=== PATIENT | male | born 2000 ===

== ENCOUNTER 2024-12-02 07:47 | Outpatient (AMB) | payer OTHER, SELFPAY ==
--- OUTSIDE RECORDS SUMMARY | 2024-12-02 07:50 | XMS_ITS | Clinical Summary ---
Author Organization [facility] Address [address] [place] [address] Phone Care Team Providers Care Assistant Sales Director Name Role Phone Loki Metz MD Primary Care Provider [phone] Allergies No known active allergies Medications No known medications Encounters Date Type Department Care Team Description 10/21/[address] [phone] Loki Metz MD from Last 3 Months Medical History Medical History Date Comments Asthma, moderate persistent, poorly-controlled DX:Asthma, moderate persiste nt, poorly-controlled; COMMENT: multiple Ed visits, no admissions, worse in [place] Seasonal allergies DX:Seasonal a llergies Obesity 09/08 DX:Obesity; COMM ENT: normal labs Eczema 09/19/2008 DX:Eczema Epistaxis 10/08/2010 DX:Epistaxis Asthma, moderate persistent, well-controlled 09/19/2008 DX:Asthma, moderate persiste nt, well-controlled Low vision, both eyes 12/15/2008 DX:Low vis ion, both eyes; COMMENT: Seen by Dr. Vela, glasses for school Childhood obesity 09/19/2008 DX:Childhood o besity; COMMENT: Referred to [facility] weight management/appt - Janine Abn thyroid function test (elevated TPO antibodies) TSH monitor q 6m F/u monthly/9-12 nl TSH,FreeT4 Fractured great toe 05/08/2015 DX:Fractured great toe; COMMENT: 3-16 mildly displaced fx at base of 1st distal phalanx Myopia with astigmatism 10/26/2015 DX:Myopi a with astigmatism Mild intermittent asthma wit hout complication 03/02/2019 DX:Mild intermittent asthma without complication Closed displaced fracture of nasal bone 08/02/2019 DX:Closed displaced fracture of nasal bone; COMMENT: 08/01/19: trauma, seen at [facility] ER Depression 03/09/2020 DX:Depression Family History Medical History Relation Name Comments Diabetes Father Hyperlipidemia Father Other cancer Father salivary gland 40s Stroke Father 40s Thyroid disease Father Other: Other Father's side pat siblings t ype 2 diabetes Glaucoma Maternal Grandfather Other: Other Maternal Grandfather d motorcycle accident Hypertension Maternal Grandmother Other: heart disease Other both si edmund Diabetes Paternal Grandfather heart d isease Hypertension Paternal Grandmother Blindness Neg Hx Cataracts Neg Hx Macular degeneration Neg Hx Strabismus Neg Hx Relation Name Status Comments Father Alive cjose sr .cance r neck saliva gland ,heart attack at 45y/o,depression Father's side Maternal Grandfather Maternal Grandmother Mother Alive Other Paternal Grandfather Paternal Grandmother Social History Tobacco Use Types Packs/Day Years Used Date Smoking Tobacco: Never Smokeless Tobacco: Never Alcohol Use Standard Drinks/Week Comments Not Currently 0 (1 standard drink = 0.6 oz pur e alcohol) Sex and Gender Information Value Date Recorded Sex Assigned at Male 01/25/2024 9:40 AM EST Legal Sex Male 5:42 PM EST Gender Identity Male 01/25/2024 9:40 AM EST Sexual Orientation Straight 01/25/2024 9: 40 AM EST Obstetrics History Last Filed Vital Signs Vital Sign Reading Time Taken Comments Blood Pressure 115/61 01/25/2024 9:51 AM EST Pulse 65 01/25/2024 9:51 AM EST Temperature 36.8 C (98.2 F) 01/25/2024 9:51 AM EST Respiratory Rate 17 01/25/2024 9:51 AM EST Oxygen Saturation 97% 01/25/2024 9:51 AM EST Inhaled Oxygen Concentration - - Weight 90.7 kg (200 lb) 01/25/2024 8:53 AM EST Height 175.3 cm (5' 9 ) 01/25/2024 8:53 AM EST Body Mass Index 29.53 01/25/2024 8:53 AM EST Plan of Treatment Health Maintenance Due Date Last Done Comments Pneumococcal Vaccine: Pediatrics (0 to 5 Years) and At-Risk Patients (6 to 49 Years) (1 of 1 - PPSV23, PCV20, or PCV21) 2008 01/18/2003, 2002, 2002 Meningococcal B Vaccine (1 of 2 - Standard) 2018 Cholesterol Screening (Lipid Panel) 02/09/2022 HIV Screening 02/09/2022 Hepatitis C Screening 02/09/2022 Social Influencers of Health Screening 02/09/2022 DTaP,Tdap,and Td Vaccines (7 - Td or Tdap) 12/09/2023 12/08/2013, 10/28/2006, 11/22/2003, Additional history exists Depression Screening 03/03/2024 COVID-19 Vaccine ( - season) 2024 06/20/2020, 05/29/2020 Influenza Vaccine (#1) 2024 , 03/02/2019, 12/23/2017, Additional history exists RSV Immunization Adult Patients (1 - 1-dose 75+ series) 2077 Hepatitis B Vaccines Completed 05/05/2003, 2002, 2002 HIB Vaccines Completed 11/22/2003, 11/02, 01/18/2003, Additional history exists IPV Vaccines Completed 10/28/2006, 11/02, 01/18/2003, Additional history exists MMR Vaccines Completed 10/28/2006, 11/22/2003 Varicella Vaccines Completed 10/28/2006, 08/05/2003 HPV Vaccines Completed 10/12/2015, 12/01, 12/08/2013 Meningococcal ACWY Vaccine Completed 03/02/2019, Hepatitis A Vaccines Aged Out No long er eligible based on patient's age to complete this topic RSV Immunization Patients Under 20 months Aged Out No longer eligible based on patient's age to complete this topic Insurance [facility] MEDICAID - [place] Care Teams Assistant Sales Director Relationship Specialty Start Date End Date Loki Metz MD [address] [place] [address] PCP - General Pediatrics 10/21/24
--- OUTSIDE RECORDS SUMMARY | 2024-12-02 07:50 | XMS_ITS | Clinical Summary ---
Author Organization [facility] Address [address] [place] [address] Care Team Providers Care Precinct Commanding Officer Name Role Phone Unavailable Primary Care Provider Unavailabl e Source Comments PLEASE NOTE, if this patient is a minor, it may be UNLAWFUL to discuss sensitive information that is contained in these records (such as FAMILY PLANNING, MENTAL HEALTH or SUBSTANCE ABUSE) with the minor patient's parent or other person without the patient's specific authorization.[facility] Allergies No known active allergies Medications No known medications Active Problems No known active problems Social History Tobacco Use Types Packs/Day Years Used Date Smoking Tobacco: Never Smokeless Tobacco: Never Tobacco Cessation:Counseling Given: Not Answered Social Connections Answer Date Recorded Connectedness 0 11/20/2023 Financial Resource Strain Answer Date R ecorded Financial Resource Strain 0 2021 Stress Answer Date Recorded Stress 0 08/01/2021 Physical Activity Answer Date Recorded Physical Activity 0 08/01/2021 Food Insecurity Answer Date Recorded Food 0 11/27/2023 Transportation Needs Answer Date Record ed Transportation 0 08/01/2021 Housing Stability Answer Date Recorded Housing 0 08/01/2021 Safety and Environment Answer Date Arnulfo rded Safety 0 08/01/2021 Utilities Answer Date Recorded Utilities 0 08/01/2021 Employment Answer Date Recorded Stress 0 11/20/2023 Sex and Gender Information Value Date Recorded Sex Assigned at Not on file Legal Sex Male 8:58 AM PST Gender Identity Not on file Sexual Orientation Not on file Last Filed Vital Signs Vital Sign Reading Time Taken Comments Blood Pressure 109/62 09/02/2022 12:57 PM EDT Pulse 50 09/02/2022 12:57 PM EDT Temperature - - Respiratory Rate - - Oxygen Saturation - - Inhaled Oxygen Concentration - - Weight - - Height - - Body Mass Index - - Plan of Treatment Health Maintenance Due Date Last Done Comments Anxiety Screening 2002 Hepatitis C Screening 2002 Imm-Varicella (1 of 2 - 13+ 2-dose series) 08/01/2015 HIV Screening 2017 Imm-HPV (1 - Male 3-dose series) 2017 Imm-DTaP/Tdap/Td (1 - Tdap) 2021 Imm-Hepatitis B (1 of 3 - 19 + 3-dose series) 2021 Dental Perio Charting 08/08/2023 08/05/2022 , 02/04/2022, 08/01/2021 Alcohol and Drug Screen 03/03/2024 Depression Annual Screen 03/03/2024 [id number] ( season) 2024 Imm-Influenza (#1) 2024 Tobacco Screening 05/03/2025 05/03/2024 Dental BW 05/05/2025 05/03/2024, 06/0 07/2022, 02/04/2022, Additional history exists Dental Examination 05/05/2025 05/03/2024, 0 08/05/2022, 02/04/2022, Additional history exists Dental Prophy 05/05/2025 05/03/2024, 06/0 07/2022, 02/04/2022, Additional history exists Hypertension Screening (#1) 09/01/2025 Dental FMX/Pano 05/05/2029 05/03/2024 Procedures Procedure Name Priority Date/Time Associated Diagnosis Comments PANORAMIC RADIOGRAPHIC IMAGE Routine 05/03/2024 9:00 AM EST Encounter for dental examination and cleaning with abnormal findings BITEWINGS - FOUR RADIOGRAPHIC IMAGES Routine 05/03/2024 9:00 AM EST Encounter for dental examination and cleaning with abnormal findings PROPHYLAXIS - ADULT Routine 05/03/2024 9 :00 AM EST Encounter for dental examination and cleaning with abnormal findings PERIODIC ORAL EVALUATION ESTABLISHED PATIENT Routine 05/03/2024 9:00 AM EST Encounter for dental examination and cleaning with abnormal findings COMP PERIODONTAL EVALUATION - NEW/EST PATIENT Routine 08/05/2022 9:40 AM EDT Caries of enamel (incipient) Caries from Last 3 Months or Most Recently Relevant to Health Maintenance Insurance [facility]
--- OUTSIDE RECORDS SUMMARY | 2024-12-02 07:50 | XMS_ITS | Encounter Summary ---
Author Organization [facility] Address [address] [place] [address] Care Team Providers Care Bleach Boiler Puller Name Role Phone Unavailable Primary Care Provider Unavailabl e Reason for Visit * Reason Comments Dental Hygiene/ Preventive RECALL Encounter Details Date Type Department Care Team (Late st Contact Info) Description 08/01/2021 Dental Interim Note [facility] [address] [place] [phone] Alysia Paniagua [address] [place], [place] [phone] Social History Tobacco Use Types Packs/Day Years Used Date Smoking Tobacco: Never Assessed Social Connections Answer Date Recorded Social Connections and Isolation 0 08/01/2021 Financial Resource Strain Answer Date R ecorded Financial Resource Strain 0 2021 Stress Answer Date Recorded Stress 0 08/01/2021 Physical Activity Answer Date Recorded Physical Activity 0 08/01/2021 Food Insecurity Answer Date Recorded Food 0 08/01/2021 Transportation Needs Answer Date Record ed Transportation 0 08/01/2021 Housing Stability Answer Date Recorded Housing 0 08/01/2021 Safety and Environment Answer Date Arnulfo rded Safety 0 08/01/2021 Utilities Answer Date Recorded Utilities 0 08/01/2021 Employment Answer Date Recorded Employment 0 08/01/2021 Sex and Gender Information Value Date Recorded Sex Assigned at Not on file Legal Sex Male 8:58 AM PST Gender Identity Not on file Sexual Orientation Not on file COVID-19 Exposure Response Date Recorded In the last 10 days, have yo u been in contact with someone who was confirmed or suspected to have Coronavirus/COVID-19? No / Unsure 08/01/2021 3:29 PM EDT documented as of this encounter Plan of Treatment Not on file documented as of this encounter Procedures Procedure Name Priority Date/Time Associated Diagnosis Comments 19 B COMPOSITE - WISDOM (NON BILLABLE) Routine 08/01/2021 12:00 AM EDT 30 B COMPOSITE - WISDOM (NON BILLABLE) Routine 08/01/2021 12:00 AM EDT 2 O SEALANT - PER TOOTH Routine 08/01/2021 12:00 AM EDT 3 O SEALANT - PER TOOTH Routine 08/01/2021 12:00 AM EDT 30 O SEALANT - PER TOOTH Routine 08/01/2021 12:00 AM EDT 31 O SEALANT - PER TOOTH Routine 08/01/2021 12:00 AM EDT 18 O SEALANT - PER TOOTH Routine 08/01/2021 12:00 AM EDT 19 O SEALANT - PER TOOTH Routine 08/01/2021 12:00 AM EDT 14 O SEALANT - PER TOOTH Routine 08/01/2021 12:00 AM EDT 15 O SEALANT - PER TOOTH Routine 08/01/2021 12:00 AM EDT documented in this encounter Visit Diagnoses Not on filedocumented in this encounter
--- OUTSIDE RECORDS SUMMARY | 2024-12-02 07:50 | XMS_ITS ---
Author Name [facility] Organization Unknown History of Medication Use Medication Directions Dispensed Refills Start Date End Date Stat us No known medications No known medications active Problems Problem Status Onset Date Problem Type Date of Resoluti on Source Sore throat active EncounterDiagnosisAct CCT Encounters Encounter Type Encounter Reason Primary Diagnosis Location Date Ambulatory Acute pharyngitis, unspecified Acute pharyngitis, unspecified [facility] 10/18/2023 Care Team Organization Name Specialty Phone Email Start Date End [facility] 10/18/2023 05/19/2024 [facility] 10/18/2023 [facility] Loki Metz Primary Care 01/08/20222023
--- OUTSIDE RECORDS SUMMARY | 2024-12-02 07:50 | XMS_ITS | Clinical Summary ---
Author Organization [facility] Address [address] [id number] Care Team Providers Care Metal Cnc Operator Name Role Phone Pcp, No Primary Care Provider Unavailabl e Allergies No known active allergies Medications No known medications Social History Tobacco Use Types Packs/Day Years Used Date Smoking Tobacco: Never Assessed Sex and Gender Information Value Date Recorded Sex Assigned at Not on file Legal Sex Male 9:15 AM EDT Gender Identity Not on file Sexual Orientation Not on file Last Filed Vital Signs Vital Sign Reading Time Taken Comments Blood Pressure 126/78 10/18/2023 9:25 AM EDT Pulse 90 10/18/2023 9:25 AM EDT Temperature 37.7 C (99.8 F) 10/18/2023 9:25 AM EDT Respiratory Rate 16 10/18/2023 9:25 AM EDT Oxygen Saturation 96% 10/18/2023 9:25 AM EDT Inhaled Oxygen Concentration - - Weight 86.2 kg (190 lb) 10/18/2023 9:25 AM EDT Height 175.3 cm (5' 9 ) 10/18/2023 9:25 AM EDT Body Mass Index 28.06 10/18/2023 9:25 AM EDT Plan of Treatment Health Maintenance Due Date Last Done Comments Hepatitis C Virus Screening 2002 HIV Screening 08/01/2015 HPV Vaccines (1 - Male 3-dos e series) 2017 DTaP/Tdap/Td Vaccines (1 - Tdap) 2021 Hepatitis B Vaccines (1 of 3 - 19+ 3-dose series) 2021 Influenza Vaccine 10/01/2024 COVID-19 Vaccine (1 - 2023-2 5 season) 2024 Pneumococcal Vaccine: Pediat micheal (0-5 Years) and At-Risk Patients (6 to 49 Years) Aged Out No longer eligible b ased on patient's age to complete this topic Insurance [facility] Care Teams Metal Cnc Operator Relationship Specialty Start Date End Date Pcp, Ann PCP - General General Medicine 10/18/23
[2024-12-02 07:53] VITALS: BP 112/62; PULSE 54; O2SAT 99; BMI 34.0
--- NOTE | 2024-12-02 07:53 | MHC.PC.OV ---
Vital Signs 12/02/24 07:53 Height 5 ft 8.5 in Weight 227 lb BMI 34.0 BP 112/62 Blood Pressure Location Lt brachial Position Sitting Pulse 54 Pulse Source Pulse Oximeter Pulse Oximetry (%) 99 Oxygen Delivery Method Room Air Intake Visit Reasons: Establish Care Allergies No Known Allergies Allergy (Verified 12/02/24 08:09) Medication List - Last Reconciled 12/02/24 by Mary Boykin PA-C No Known Home Meds Tobacco use date assessed: 12/02/24 Dental Screening Dental Screen Date: 12/02/24 Did you have a dental visit in the last 12 months?: Yes Did you have a dental problem in the last 6 months where you did not have access to dental care?: No Was dental information given to patient?: Patient has dentist HPI Establish Care HPI Details 24 year old male coming to the office for the first time. Presenting for a wellness visit and evaluation of potential lactose intolerance and dermatitis. Reports allergic rhinitis exacerbated by cat exposure, causing throat irritation and congestion. History of childhood asthma, currently not requiring a rescue inhaler. Experiences gastrointestinal discomfort after dairy consumption, indicating possible lactose intolerance. Recurrent dermatitis, possibly eczema, with dry, red patches post-haircut, potentially due to alcohol-based products. Recently ceased vaping, experiencing headaches during withdrawal. [facility] given today [facility] Medical History Asthma Surgical History S/P nasal surgery Family History Mother No problems noted. Father Salivary gland tumor Stroke Diabetes Brother No problems noted. Brother No problems noted. Sister No problems noted. Paternal Grandfather Stroke Social History Housing: Other Patient Tobacco Use Status: Current everyday Tobacco user e-Cigarette/Vaping Use: Currently Using Second Hand Smoke Exposure: Yes service: No Current occupational status: unemployed Current occupational exposures/hazards: No Cognitive needs: No Hearing needs: No Vision needs: Yes Questionnaire PHQ-9 Over the last 2 weeks, how often have you been bothered by any of the following problems? 1. Little interest or pleasure in doing things: not at all 2. Feeling down, depressed, or hopeless: not at all 3. Trouble falling or staying asleep, or sleeping too much: not at all 4. Feeling tired or having little energy: not at all 5. Poor appetite or overeating: not at all 6. Feeling bad about yourself - or that you are a failure or have let yourself or your family down: not at all 7. Trouble concentrating on things, such as reading the newspaper or watching television: not at all 8. Moving or speaking so slowly that other people could have noticed. Or the opposite - being so fidgety or restless that you have been moving around a lot more than usual: not at all 9. Thoughts that you would be better off or of hurting yourself in some way: not at all Total score: 0 Depression Screening Interpretation: Negative Depression Screening Done: Yes Source: Developed by Drs. Miguel Angel Yost, Eusebia Koehler, Fady Cantrell and colleagues, with an educational amish from [employer]. Thrive Questionnaire Date Thrive assessed: 11/29/24 I am a: Patient What is your living situation today?: I have a steady place to live Within the past 12 months, did the food you bought not last and you didn't have the money to get more?: Never true Within the past 12 months, did you worry whether your food would run out before you got money to buy more?: Never true Do you have trouble paying for medicines?: No Do you have trouble getting transportation to medical appointments?: No Do you have trouble paying your heating and electricity bill?: No Do you have trouble taking care of your child, family member or friend?: No Do you have trouble with day-to-day activities such as bathing, preparing meals, shopping, managing finances, etc.?: No Are you currently unemployed and looking for a job?: Yes Are you interested in more education?: Yes Please select the resources that you would like help with: Education Currently or been in a relationship where the following occur: No concerns reported THRIVE Score: 0 AUDIT C Alcohol Use Questionnaire (AUDIT-C) 1. How often do you have a drink containing alcohol?: Monthly or less 2. How many drinks containing alcohol do you have on a typical day when you are drinking?: 1 or 2 3. How often do you have six or more drinks on one occasion?: Never Total Score: 1 KATTY-7 AMB Questionnaire KATTY-7 Date KATTY - 7 assessed: 12/02/24 Feeling nervous, anxious, or on edge: 0 = Not at all Not being able to stop or control worryin = Not at all Worrying too much about different things: 0 = Not at all Trouble relaxin = Not at all Being so restless that it is hard to sit still: 0 = Not at all Becoming easily annoyed or irritable: 0 = Not at all Feeling afraid as if something awful might happen: 0 = Not at all Total KATTY-7 score (0-4 normal; 5-9 mild; 10-14 moderate; 15-21 severe): 0 Source: Developed by Drs. Miguel Angel Yost, Eusebia Koehler, Fady Cantrell and colleagues, with an educational amish from [employer]. KATTY-7 Assessment Billing KATTY-7 Assessment Tool: KATTY-7 Assessment 27900 Review of Systems Const Denies body aches, Denies chills, Denies fever(s), Reports headache(s) (at night ) and Denies poor appetite Eyes Reports no additional complaints and Reports requires corrective lenses ENT Denies dysphagia, Denies dizziness, Reports headache(s) (at night ) and Denies odynophagia Card Denies chest pain, Denies syncope, Denies edema, Denies irregular heart rhythm, Denies lightheadedness and Denies dyspnea Resp Denies cough and Denies dyspnea GI Denies abdominal pain, Denies constipation, Denies dysphagia, Denies diarrhea, Denies nausea, Denies odynophagia and Denies vomiting Reports no additional complaints Musc Reports no additional complaints and Denies abnormal gait Skin/Breast Reports system reviewed and no additional complaints, except as documented Neuro Denies abnormal gait, Denies dizziness, Denies syncope and Reports headache(s) (at night ) Psych Reports no additional complaints Physical exam (Primary Care) Vital Signs: Last Vital Signs Pulse 54 12/02/24 07:53 BP 112/62 12/02/24 07:53 Pulse Ox 99 12/02/24 07:53 Oxygen Delivery Method Room Air 12/02/24 07:53 BMI result Body Mass Index 34.0 Tobacco/Smoking Status: Tobacco use Status Tobacco use date assessed 12/02/24 12/02/24 08:00 Patient Tobacco Use Status Current everyday Tobacco 12/02/24 08:00 e-Cigarette/Vaping Use Currently Using 12/02/24 08:00 PHQ-9: PHQ-9 Score PHQ-9: Total score 0 12/02/24 08:08 Depression Screening Interpretation: Negative Thrive Assessment: Date of Thrive Assessment Date Thrive assessed 11/29/24 12/02/24 08:00 Currently or been in a relationship where the following occur: No concerns reported Const General: cooperative, healthy appearing, comfortable and no acute distress Orientation/consciousness: patient oriented x3 HENMT Head: Yes normocephalic Ears: hearing grossly normal bilaterally General nose exam: Normal external nose present Face and sinus: Yes normal facial exam and Yes sinuses nontender Mouth: Normal oral and palatal mucosa present and tongue normal Throat: Yes posterior oropharynx normal Eyes General: appearance normal, both eyes and all related structures Conjunctivae: conjunctivae normal Pupils: Equal, round and reactive pupils present EOM: EOMs intact bilaterally and No Nystagmus present Neck Neck: Yes full ROM and Yes no lymphadenopathy Chest Chest palpation & inspection: normal inspection of the chest Resp Effort & Inspection: normal respiratory effort Auscultation: clear to auscultation bilaterally, no crackles, no rales, no rhonchi and no wheezes Cardio Rate: regular rate Rhythm: regular rhythm Peripheral pulses: radial pulses present and dorsalis pedis present GI Inspection: Yes normal to inspection and No Abdominal wall edema Palpation (GI): Soft to palpation, not firm and nontender Auscultation: normal bowel sounds Rectal Exam - Male: Yes deferred General: Yes no CVA tenderness Back/Spine/Pelvis Back: no CVA tenderness Skin Other: no rash on the face at this time General skin exam: no rashes or lesions noted Neuro General: patient oriented x3 Cranial nerves: Yes Equal, round and reactive pupils present, Yes Midline tongue present, Yes Ability to bilaterally elevate shoulders present and No Nystagmus present Gait exam (Neuro): Normal gait present Extrem General: Yes normal to inspection, Yes full ROM and No edema Psych Speech and movement: Normal speech and movement present Affect: normal affect Attitude: cooperative Insight: Good insight present (Psych) Judgement: Good judgement present (Psych) Immunizations Boostrix Tdap 2.5 Lf unit-8 mcg-5 Lf/0.5 mL intramuscular syringe Performing Provider: Mary Boykin PA-C [facility] Administered by: Shazia Cortez CMA on 12/02/24 08:41 Dose Route Admin Location Dispensed Lot Number Expiration Date [facility] Notched Blade Loader 0.5 mL IM Left Deltoid 0.5 mL [id number] 01/20/27 [id number] [employer] Total Dispensed Waste 0.5 mL 0 % VIS Given Date VIS Provided VIS Publication Date 12/02/24 Single Vaccine 20 Eligibility Eligibility Date Funding Source Not [facility] Eligible 12/02/24 Private Coding Level of Care Code New Pt Prev Care 18-39yr(49460 Diagnoses Tobacco use Z72.0 Stomach discomfort R10.9 Annual physical exam Z00.00 Dermatitis L30.9 Family history of stroke Z82.3 Additional Codes KATTY-7 Assessment Billing - KATTY-7 Assessment Tool: KATTY-7 Assessment 24025 ([id number]) Assessment & Plan Assessment & Plan (1) Tobacco use: Code(s): Z72.0 - Tobacco use Category: Social Hx Plan: Recently quit vaping and strongly advised to avoid the use of tobacco products. (2) Stomach discomfort: Comment: secondary to dairy Code(s): R10.9 - Unspecified abdominal pain Category: Medical Plan: The patient is advised to avoid dairy products or use lactase supplements to manage symptoms. Formal allergy testing was discussed but declined today. Does not appear to be related to GERD. Reviewed red flag symptoms and when to present for re-evaluation (3) Annual physical exam: Code(s): Z00.00 - Encounter for general adult medical examination without abnormal findings Category: Medical Plan: Patient is up to date on all recommended routine screenings and vaccinations for his age. He was given TDap in the office today. Ordered for updated blood work and plan to follow up yearly or sooner as needed. (4) Dermatitis: Code(s): L30.9 - Dermatitis, unspecified Category: Medical Plan: Skin irritation only after the [employer] that resolves with facial creams. Does not sound typical of staph infection but I did review these symptoms with him. The patient is advised to avoid alcohol-based products and use moisturizing lotions to manage skin irritation. Further evaluation may be considered if symptoms persist. (5) Family history of stroke: Code(s): Z82.3 - Family history of stroke Category: Medical Plan: Given the family history of stroke both with patient's father and paternal grandfather plan to obtain cholesterol labs as well as screening for diabetes. Plan This note was constructed using voice recognition software. While every effort has been made to ensure accuracy and craft demonstrator, still areas may have been included sometimes these areas may affect the content or meeting of the given symptoms. Total time spent caring for the patient today was 30 minutes. This includes time spent before the visit reviewing the chart, time spent during the visit, and time spent after the visit and documentation. Patient was informed and verbally consented to the use of an ambient scribe for clinic note documentation during this visit. Orders: Orders Complete Blood Count Auto Diff Today Z13.0 - Encounter for screening for diseases of the blood and blood-forming organs and certain disorders involving the immune mechanism TSH reflex Free T4 Today Z13.29 - Encounter for screening for other suspected endocrine disorder Hemoglobin A1c Today Z13.1 - Encounter for screening for diabetes mellitus Free T4 (Free Thyroxine) Today Z13.29 - Encounter for screening for other suspected endocrine disorder Comprehensive Met. Panel Today R10.9 - Unspecified abdominal pain, Z13.1 - Encounter for screening for diabetes mellitus Vitamin B12 and Folate Today Z13.21 - Encounter for screening for nutritional disorder Vitamin D 25-OH Total Today Z13.21 - Encounter for screening for nutritional disorder Lipid Panel Today Z13.220 - Encounter for screening for lipoid disorders TDaP Immunization Today Z23 - Encounter for immunization
== END 2024-12-02 08:46 | disposition home or self-care (01) ==
LOC: HO.HMCH 07:47
DX: Z72.0 Tobacco use (principal); R10.9 Unspecified abdominal pain; Z00.00 Encounter for general adult medical examination without abnormal findings; L30.9 Dermatitis, unspecified; Z82.3 Family history of stroke; Z23 Encounter for immunization

== ENCOUNTER → 2024-12-02 07:47 | Outpatient (BNVA) | payer OTHER, SELFPAY | DX: Z00.00 Encounter for general adult medical examination without abnormal findings (principal); R10.9 Unspecified abdominal pain; L30.9 Dermatitis, unspecified; Z82.3 Family history of stroke; Z23 Encounter for immunization | CPT/HCPCS: 90471; 90715; 96127; 99385 ==

== ENCOUNTER 2024-12-08 10:35 | Outpatient (REF) | payer OTHER, SELFPAY ==
[2024-12-08 10:56] LABS: MANUAL DIFF FLAG NO
[2024-12-08 11:47] LABS: Hematocrit 44.0 % (42.0-52.0); Hemoglobin 14.7 g/dl (14.0-18.0); Imm Gran Abs Auto 0.02 X10*3/uL (0.00-0.03); Imm Gran Pct Auto 0.3 % (0.0-0.4); Lymphocytes Absolute Auto 3.2 X10*3/uL (1.2-4.9); Mean Corpuscular HGB Conc 33.4 g/dl (31.0-36.0); Mean Corpuscular Hemoglobin 29.8 pg (27.0-33.0); Mean Corpuscular Volume 89.2 fL (80.0-98.0); NRBC Abs Auto 0.000 X10*3/uL (0.0-0.012); NRBC Pct Auto 0.0 /100WBC (0.0-0.2); Platelet Count 234 X10*3/uL (160-400); Red Blood Count 4.93 X10*6/uL (4.60-5.80); White Blood Count 7.1 X10*3/uL (4.8-10.8)
[2024-12-08 12:33] LABS: Alanine Aminotransferase 52 U/L (0-40); Albumin Level 4.8 g/dL (3.5-5.0); Alkaline Phosphatase 74 U/L (39-117); Anion Gap 9 (12-20); Aspartate Amino Transferase 46 U/L (5-37); Blood Urea Nitrogen 20 mg/dL (9-16); Calcium 9.3 mg/dL (8.4-10.2); Carbon Dioxide 30 mmol/L (22-29); Chloride 106 mmol/L (96-108); Cholesterol 161 mg/dL (<200); Estimated Glomerular Filt Rate > 60; HDL Cholesterol 45 mg/dL (>40); Potassium 3.8 mmol/L (3.3-5.1); Sodium 141 mmol/L (135-145); Total Protein 7.5 g/dL (6.5-8.0); Triglycerides 60 mg/dL (<150)
[2024-12-08 12:36] LABS: Free T4 (Free Thyroxine) 1.09 ng/dL (0.71-1.85)
[2024-12-08 12:52] LABS: Folate 7.8 ng/mL (> or = 4.0); Vitamin B12 724 pg/mL (200-900)
== END 2024-12-08 10:36 | disposition home or self-care (01) ==
LOC: HO.LAB 10:35
DX: Z13.21 Encounter for screening for nutritional disorder (principal); R10.9 Unspecified abdominal pain; Z13.29 Encounter for screening for other suspected endocrine disorder; Z13.220 Encounter for screening for lipoid disorders; Z13.1 Encounter for screening for diabetes mellitus; Z13.0 Encounter for screening for diseases of the blood and blood-forming organs and certain disorders involving the immune mechanism
CPT/HCPCS: 36415; 80053; 80061; 82306; 82607; 82746; 83036; 84439; 84443; 85025